=== PATIENT | male | born 1960 | race Caucasian/White ===

== ENCOUNTER 2025-06-23 13:28 | Emergency (ER) | payer MEDICAID, SELFPAY ==
[2025-06-23 13:29] VITALS: BMI 24.6
[2025-06-23 13:53] VITALS: BP 165/71; PULSE 72; RESP 16; TEMP 36.6; O2SAT 98
--- NOTE | 2025-06-23 14:00 | PD.EDNV ---
Nausea/Vomit./Diarrhea-RME/HPI General Chief complaint: Nausea/Vomiting/Diarrhea Stated complaint: I THINK I GOT POSION BY BEDBUGS Time Seen by Provider: 06/23/25 13:57 Arrival date/time: 06/23/25 13:28 64-year-old male presents emergency department today for complaint of nausea vomiting diarrhea which began today patient reports he was spraying for bedbugs yesterday and believes this may be the cause of his symptoms Limitations: no limitations Related Data Home Medications ?Medication ?Instructions ?Recorded ?Confirmed Prevagen 1 tab PO DAILY 11/05/22 atorvastatin 40 mg tablet 40 mg PO DAILY 11/05/22 11/05/22 gabapentin 300 mg capsule 300 mg PO TID 11/05/22 11/05/22 hydrochlorothiazide 25 mg tablet 25 mg PO DAILY 11/05/22 11/05/22 lisinopril 40 mg tablet 40 mg PO DAILY 11/05/22 11/05/22 sertraline 100 mg tablet 100 mg PO DAILY 11/05/22 11/05/22 Previous Rx's ?Medication ?Instructions ?Recorded loperamide 2 mg capsule (Imodium 2 mg PO Q6H PRN loose stool #14 06/23/25 A-D) caps ondansetron 4 mg disintegrating 4 mg PO Q8H PRN nausea and 06/23/25 tablet vomiting #10 tabs Allergies Allergy/AdvReac Type Severity Reaction Status Date / Time No Known Allergies Allergy Verified 06/23/25 13:31 Review of Systems Review of Systems Systems Reviewed: All systems reviewed, normal except as documented Constitutional Constitutional: Reports system reviewed and no additional complaints, except as documented, Denies fever(s) and Denies headache(s) Eyes Eyes: Reports system reviewed and no additional complaints, except as documented and Denies blurry vision ENT Ears, Nose, Mouth, and Throat: Reports system reviewed and no additional complaints, except as documented, Denies headache(s), Denies nasal congestion and Denies nasal discharge Cardiovascular Cardiovascular: Reports system reviewed and no additional complaints, except as documented, Denies chest pain and Denies dyspnea Respiratory Respiratory: Reports system reviewed and no additional complaints, except as documented, Denies chest congestion, Denies cough and Denies dyspnea Gastrointestinal Gastrointestinal: Reports system reviewed and no additional complaints, except as documented, Denies abdominal pain, Reports loose stools, Reports nausea and Reports vomiting Integumentary/Breasts Skin/Breast: Reports system reviewed and no additional complaints, except as documented and Denies rash Neurologic Neurologic: Reports system reviewed and no additional complaints, except as documented, Reports as per HPI and Denies headache(s) Past Medical History Past Medical History NEUROLOGIC: Positive Neurological Disorders and Migraine; Negative Seizures CARDIAC: Positive Cardiac Disorders, Hypercholesterolemia and Hypertension; Negative Congestive Heart Failure, Edema, Cellulitis or Varicose Veins RESPIRATORY: Negative Chronic Obstructive Pulmonary Disease (COPD), Tuberculosis or Sleep Apnea GASTROINTESTINAL: Negative Gastrointestinal Disorders or Hepatitis GENITOURINARY: Negative Genitourinary Disorders or Renal Disease MUSCULOSKELETAL: Positive Musculoskeletal Disorders ENDOCRINE: Negative Endocrine Disorders, Diabetes Mellitus Type 1 or Diabetes Mellitus Type 2 HEMATOLOGIC: Negative Blood Disorders PSYCHO/SOCIAL: Positive Depression and Anxiety OTHER HISTORY: Positive Chicken Pox, Measles and Mumps; Negative Hospitalization, Autoimmune Disease, Shingles, Falls, Blood Transfusions, Blood Transfusion Reaction, Anesthesia Reactions, Chemotherapy, Radiation Therapy, MRSA or Cancer Family History FAMILY HISTORY: Positive Family Cardiac Disorders (FATHER ([place])) and Family Surgery (MOTHER); Negative Family Psychiatric Problems, Family Respiratory Disorders, Family Gastrointestinal Problems, Family Cancer or Family Anesthesia Reaction Surgical History SURGICAL: Negative Pacemaker Social History SMOKING STATUS: Current some day smoker ED Exam General Limitations: Present no limitations General appearance: Present alert and in no apparent distress Head Head exam: Present atraumatic, normocephalic and normal inspection Eye Eye exam: Present normal appearance, PERRL and EOMI; Absent conjunctival injection ENT ENT exam: Present normal exam, normal oropharynx and mucous membranes moist Neck Neck exam: Present normal inspection, full ROM and trachea midline Chest Chest inspection: Present normal inspection and symmetric chest wall rise Respiratory Respiratory exam: Present normal lung sounds bilaterally; Absent respiratory distress Cardiovascular Cardiovascular exam: Present regular rate, normal rhythm and normal heart sounds Abdominal Exam Abdominal exam: Present soft and normal bowel sounds; Absent distention, tenderness, guarding, rebound or rigidity Extremities Exam Extremities exam: Present normal inspection and full ROM Back Exam Back exam: Present normal inspection and full ROM Neurological Exam Neurological exam: Present alert, oriented X3, CN II-XII intact, normal gait and reflexes normal; Absent motor sensory deficit Psychiatric Psychiatric exam: Present normal affect and normal mood Skin Skin exam: Present warm, dry, intact and normal color; Absent rash Course Quality Measures none Orders Category Date Time Status Bedside COVID-19 Antigen Test NOW Care 06/23/25 13:57 Completed Bedside Influenza A&B Antigen Test NOW Care 06/23/25 13:57 Completed Loperamide [Imodium] Med 06/23/25 13:57 Discontinued 4 mg PO X1 ONE Ondansetron Odt [Zofran Odt] Med 06/23/25 13:57 Discontinued 4 mg PO X1 ONE Vital Signs Vital signs: Vital Signs Temperature 97.8 F 06/23/25 13:53 Pulse Rate 72 06/23/25 13:53 Respiratory Rate 16 06/23/25 13:53 Blood Pressure 165/71 H 06/23/25 13:53 Pulse Oximetry (%) 98 06/23/25 13:53 Oxygen Delivery Method Room Air 06/23/25 13:53 O2 saturation 98% room air within the limits Nausea/Vomiting/Diarrhea MDM Narrative MDM Narrative:: 64-year-old male presents emergency department today for complaint of nausea vomiting diarrhea which began today patient reports he was spraying for bedbugs yesterday and believes this may be the cause of his symptoms On exam patient well-appearing patient does not appear ill or toxic in no acute distress Patient day for flu and COVID both of which are negative Symptoms consistent with viral illness Patient is hemodynamically stable has no abdominal pain no chest pain or shortness of breath Patient discharged home in no distress to follow-up with primary care doctor in the next 24 to 48 hours and for any worsening symptoms to return to the ER immediately Patient data External records reviewed:: [facility] previous records Clinical information provided by:: patient Social determinants that could affect healthcare access:: none Patient has the following chronic illnesses:: None How is presenting disease/condition affected by chronic disease/condition?: uneffected by Evaluation data The following diagnostics were reviewed and interpreted by me:: lab results Lab and/or radiology exams considered but not ordered:: Patient here for flu and COVID Interpretation Summary: Reviewed by me Medications / Prescriptions Medications / Prescriptions considered but not ordered:: Given Medication administrations:: Medication Administration History Discontinued Medications Loperamide HCl (Loperamide 2 Mg Capsule) 4 mg PO X1 ONE Stop: 06/23/25 13:58 Last Admin: 06/23/25 14:07 Dose: 4 mg Documented By: MAGDIEL Ondansetron HCl (Ondansetron Odt 4 Mg Tabrap) 4 mg PO X1 ONE; Protocol Stop: 06/23/25 13:58 Last Admin: 06/23/25 14:06 Dose: 4 mg Documented By: MF Given Consultations Consultation(s) initiated? (list below): No Diagnosis Nausea Differential Diagnosis: traveler's diarrhea and food poisoning Most likely diagnosis given after review of the tests above:: Nausea vomit diarrhea Admission Indicated Admission indicated?: not indicated Admission Request Was there a request for admission?: No Disposition Plan Disposition Plan: Discharge Discharge Attestation Discharge Attestation: The patient and all family members were given an opportunity to ask questions and understood the discharge instructions. Discharge instructions specifically effects, indications for sooner follow up or return to the emergency department, and the expected course of current diagnosis. Patient condition: Stable Discharge Plan Plan Patient Disposition: HOME (Self Care) Discharge Disposition comment: Stable Prescriptions/Referrals Prescriptions/Med Rec: New loperamide [Imodium A-D] 2 mg capsule 2 mg PO Q6H PRN (Reason: loose stool) Qty: 14 0RF ondansetron 4 mg tablet,disintegrating 4 mg PO Q8H PRN (Reason: nausea and vomiting) Qty: 10 0RF No Action atorvastatin 40 mg tablet 40 mg PO DAILY Patient Comments: TAKE 1 TABLET BY MOUTH EVERY DAY sertraline 100 mg tablet 100 mg PO DAILY Patient Comments: TAKE 1 TABLET BY MOUTH EVERY DAY FOR 30 DAYS gabapentin 300 mg capsule 300 mg PO TID Patient Comments: TAKE 1 CAPSULE BY MOUTH THREE TIMES A DAY hydrochlorothiazide 25 mg tablet 25 mg PO DAILY Patient Comments: TAKE 1 TABLET BY MOUTH EVERY DAY lisinopril 40 mg tablet 40 mg PO DAILY Patient Comments: TAKE 1 TABLET BY MOUTH EVERY DAY Prevagen 1 tab PO DAILY Problem List Clinical Impression: Nausea vomiting and diarrhea Patient/Caregiver Discharge Instructions Education Materials: Treating Diarrhea Additional Instructions: Please follow up with your primary care doctor in the next 24-48hrs for any worsening symptoms return here immediately Print Language: [place] Stand Alone Forms: [employer] Info., Patient Portal Info Letter PA/V BELT COVERER Supervising Physician PA/V BELT COVERER Supervising Physician: Dr. jackson
[2025-06-23] MEDS: ONDANSETRON ODT 4 MG TABRAP PO (14:06)
[2025-06-23] MEDS: LOPERAMIDE 2 MG CAPSULE 4 MG PO (14:07)
== END 2025-06-23 14:19 | disposition home or self-care (01) ==
LOC: SERX 14:16
PROVIDERS: Emergency Provider Family Medicine
DX: R11.2 Nausea with vomiting, unspecified (principal); R19.7 Diarrhea, unspecified
CPT/HCPCS: 87400; 87811; 99283; Q0162; A9270